=== PATIENT | female | born 1955 | race Caucasian/White ===

== ENCOUNTER 2022-03-21 08:34 | Outpatient (CLI) | payer MEDICARE, SELFPAY | END 2022-03-21 08:35 | disposition home or self-care (01) | LOC: NFLDREF 08:35 | PROVIDERS: PCP Family Medicine; Visit Provider Family Medicine | DX: E78.5 Hyperlipidemia, unspecified (principal); I10 Essential (primary) hypertension; L57.0 Actinic keratosis; Z79.899 Other long term (current) drug therapy | CPT/HCPCS: 80048; 80061; 84460 ==

== ENCOUNTER 2022-05-19 13:48 | Outpatient (CLI) | payer MEDICARE, SELFPAY ==
--- NOTE | 2022-05-19 14:00 | CRLHL7_ITS ---
For Patients: As a result of the Cures Act, medical imaging exams and procedure reports are released immediately into your electronic medical record. You may view this report before your referring provider. If you have questions, please contact your health care provider. BILATERAL DIGITAL SCREENING MAMMOGRAM WITH COMPUTER-AIDED DETECTION CLINICAL HISTORY: Routine screening exam. COMPARISON: None. TECHNIQUE: Digital mammogram in CC and MLO projections including computer-aided detection (CAD). BREAST COMPOSITION: There are areas of scattered fibroglandular density. FINDINGS: RIGHT Breast: Nodular density upper outer quadrant 10 o`clock 12 cm from the nipple. LEFT Breast: No suspicious findings. IMPRESSION: RIGHT breast asymmetry/mass. RECOMMENDATIONS: Additional mammographic views of the RIGHT breast including 3D spot compression CC/MLO. RIGHT breast ultrasound may also be required. [facility] will contact the patient for follow-up. BI-RADS Category 0: Incomplete: Need Additional Imaging Evaluation and/or Prior Mammograms for Comparison A lay language report of this examination will be provided to the patient. Dictated by Charles North MD @ 05/20/2022 8:51:49 AM j/Dictated by: Charles North MD @ 05/20/2022 8:52:00 AM (Electronically Signed)
== END 2022-05-19 13:49 | disposition home or self-care (01) ==
PROVIDERS: PCP Family Medicine; Visit Provider Family Medicine
DX: Z12.31 Encounter for screening mammogram for malignant neoplasm of breast (principal); N63.10 Unspecified lump in the right breast, unspecified quadrant
CPT/HCPCS: 77067

== ENCOUNTER 2022-05-28 08:37 | Outpatient (CLI) | payer MEDICARE, OTHER, SELFPAY ==
--- NOTE | 2022-05-28 08:45 | CRLHL7_ITS ---
For Patients: As a result of the Cures Act, medical imaging exams and procedure reports are released immediately into your electronic medical record. You may view this report before your referring provider. If you have questions, please contact your health care provider. DIGITAL DIAGNOSTIC RIGHT MAMMOGRAM USING TOMOSYNTHESIS AND COMPUTER-AIDED DETECTION RIGHT BREAST ULTRASOUND CLINICAL HISTORY: RIGHT breast mass/asymmetry. COMPARISON: 05/19/2022. TECHNIQUE: Digital RIGHT mammogram in two projections. Tomosynthesis and CAD utilized. Real-time ultrasound imaging of RIGHT breast with imaging documentation. BREAST COMPOSITION: There are areas of scattered fibroglandular density. FINDINGS: 3D spot compression CC/MLO RIGHT breast mammogram submitted. Persistent nodular density in the upper outer quadrant without associated architectural distortion. No adenopathy. Targeted RIGHT breast ultrasound in the upper outer quadrant RIGHT breast 11 cm from the nipple 10 o`clock performed. In this location there is a benign intramammary lymph node at anterior depth with a normal central fatty hilum and normal internal vascularity. This measures 5 x 2 x 4 millimeters. IMPRESSION: Benign intramammary lymph node 10 o`clock RIGHT breast 11 cm from the nipple measuring 5 millimeters. No evidence of malignancy. RECOMMENDATIONS: Annual BILATERAL screening mammography. Results and recommendations discussed with the patient. BI-RADS Category 2: Benign A lay language report of this examination will be provided to the patient. Dictated by Charles North MD @ 05/28/2022 9:36:04 AM [email or web address]/Dictated by: Charles North MD @ 05/28/2022 9:36:00 AM (Electronically Signed)
--- NOTE | 2022-05-28 09:15 | CRLHL7_ITS ---
For Patients: As a result of the Cures Act, medical imaging exams and procedure reports are released immediately into your electronic medical record. You may view this report before your referring provider. If you have questions, please contact your health care provider. PLEASE SEE DIGITAL DIAGNOSTIC RIGHT MAMMOGRAM PERFORMED SAME DAY CRL:[email or web address]/Dictated by: Charles North MD @ 05/28/2022 9:36:00 AM (Electronically Signed)
== END 2022-05-28 08:38 | disposition home or self-care (01) ==
LOC: MAMMO 08:38
PROVIDERS: PCP Family Medicine; Visit Provider Family Medicine
DX: N63.10 Unspecified lump in the right breast, unspecified quadrant (principal); R92.8 Other abnormal and inconclusive findings on diagnostic imaging of breast
CPT/HCPCS: 76642; 77065; G0279

== ENCOUNTER 2023-11-05 11:43 | Outpatient (CLI) | payer OTHER, SELFPAY | END 2023-11-05 11:44 | disposition home or self-care (01) | PROVIDERS: PCP Family Medicine; Visit Provider Family Medicine | DX: E78.5 Hyperlipidemia, unspecified (principal); I10 Essential (primary) hypertension | CPT/HCPCS: 80048; 80061; 84460; 85025 ==

== ENCOUNTER 2024-08-02 09:33 | Outpatient (CLI) | payer MEDICARE, SELFPAY | END 2024-08-02 09:34 | disposition home or self-care (01) | PROVIDERS: PCP Family Medicine; Visit Provider Family Medicine | DX: I10 Essential (primary) hypertension (principal) | CPT/HCPCS: 80048; 83735 ==

== ENCOUNTER 2025-08-15 13:38 | Outpatient (CLI) | payer MEDICARE, SELFPAY | END 2025-08-15 13:39 | disposition home or self-care (01) | PROVIDERS: PCP Family Medicine; Visit Provider Family Medicine | DX: I10 Essential (primary) hypertension (principal); E78.2 Mixed hyperlipidemia; L57.0 Actinic keratosis | CPT/HCPCS: 80048; 80061; 84460; 85025 ==